=== PATIENT | male | born 1955 | race African-American/Black ===

== ENCOUNTER 2019-02-27 16:21 | Emergency (ER) | payer MEDICARE ==
[~2019-02-27] VITALS: Ht 180.3 cm; Wt 83.9 kg
[2019-02-27 16:28] VITALS: BP 161/87
[2019-02-27] MEDS ORDERED: CYCL10TA2 PO (16:39)
--- NOTE | 2019-02-27 16:39 | PHYS DOC ---
Past Medical History Past Medical History: High Cholesterol, Hypertension Additional Past Surgical Histo: Knee surgery Alcohol Use: None Drug Use: None Adult General Chief Complaint Chief Complaint: BACK PAIN - NO INJURY HPI HPI Patient is a 64 year old male who presents with right lower back pain and hip pain that shoots down his right leg. Denies any trauma. The pain comes intermittently since last Thursday. Rates his pain when he tries to sit up or walk as 10 out of 10 and shooting. Has not tried medication at home. Review of Systems Review of Systems Constitutional: Denies fever or chills [] Eyes: Denies change in visual acuity, redness, or eye pain [] HENT: Denies nasal congestion or sore throat [] Respiratory: Denies cough or shortness of breath [] Cardiovascular: No additional information not addressed in HPI [] GI: Denies abdominal pain, nausea, vomiting, bloody stools or diarrhea [] : Denies dysuria or hematuria [] Musculoskeletal: Reports back pain and pain shooting down right leg but denies joint pain [] Integument: Denies rash or skin lesions [] Neurologic: Denies headache, focal weakness or sensory changes [] Endocrine: Denies polyuria or polydipsia [] Complete systems were reviewed and found to be within normal limits, except as documented in this note. Current Medications Current Medications Current Medications Medications (Trade) Dose Ordered Sig/Igor Start Time Stop Time Status Last Admin Dose Admin Cyclobenzaprine HCl (Flexeril) 10 mg 1X ONCE 02/27/19 16:45 02/27/19 16:46 DC 02/27/19 16:38 10 MG Ketorolac Tromethamine (Toradol 30mg Vial) 30 mg 1X ONCE 02/27/19 16:45 02/27/19 16:46 DC 02/27/19 16:38 30 MG Allergies Allergies Allergies Coded Allergies Type Severity Reaction Last Updated Verified No Known Drug Allergies 02/27/19 No Physical Exam Physical Exam Constitutional: Well developed, well nourished, no acute distress, non-toxic appearance. [] HENT: Normocephalic, atraumatic, bilateral external ears normal, oropharynx moist, no oral exudates, nose normal. [] Eyes: PERRLA, EOMI, conjunctiva normal, no discharge. [] Neck: Normal range of motion, no tenderness, supple, no stridor. [] Cardiovascular:Heart rate regular rhythm, no murmur [] Lungs & Thorax: Bilateral breath sounds clear to auscultation [] Abdomen: Bowel sounds normal, soft, no tenderness, no masses, no pulsatile masses. [] Skin: Warm, dry, no erythema, no rash. [] Back: Tenderness to R lower back, no CVA tenderness. [] Extremities: No tenderness, no cyanosis, no clubbing, ROM intact, no edema. [] Neurologic: Alert and oriented X 3, normal motor function, normal sensory function, no focal deficits noted. [] Psychologic: Affect normal, judgement normal, mood normal. [] Current Patient Data Vital Signs Vital Signs Date Time Temp Pulse Resp B/P (MAP) Pulse Ox O2 Delivery O2 Flow Rate FiO2 02/27/19 16:28 97.7 66 18 161/87 (111) 98 Room Air 97.7 Lab Values Laboratory Tests Test 02/27/19 16:37 Urine Collection Type Unknown Urine Color Straw Urine Clarity Clear Urine pH 6.5 Urine Specific Alicia 1.025 Urine Protein Negative mg/dL (NEG-TRACE) Urine Glucose (UA) Negative mg/dL (NEG) Urine Ketones (Stick) Negative mg/dL (NEG) Urine Blood Negative (NEG) Urine Nitrite Negative (NEG) Urine Bilirubin Negative (NEG) Urine Urobilinogen Dipstick 1.0 mg/dL (0.2 mg/dL) Urine Leukocyte Esterase Small (NEG) Urine RBC 0 /HPF (0-2) Urine WBC Occ /HPF (0-4) Urine Bacteria 0 /HPF (0-FEW) EKG EKG [] Radiology/Procedures Radiology/Procedures [] Course & Med Decision Making Course & Med Decision Making Pertinent Labs and Imaging studies reviewed. (See chart for details) Will get UA, and give medication to help pain. Appears to be sciatica. Urine is unremarkable, does not show blood. On reeval the medications had helped his pain. Will prescribe to go home on. Liz Disclaimer Liz Disclaimer This electronic medical record was generated, in whole or in part, using a voice recognition dictation system. Departure Departure Impression: Primary Impression: Sciatica Disposition: HOME, SELF-CARE Condition: STABLE Patient Instructions: Sciatica, Sciatica with Rehab[facility] Additional Instructions: Please follow up with your primary care doctor as needed. Can take Ibuprofen at home per label instructions. Can also take Flexeril as prescribed. Do not operate machinery on this medication as can cause drowsiness. Scripts Cyclobenzaprine Hcl (CYCLOBENZAPRINE HCL) 10 Mg Tablet 1 TAB PO TID PRN for MUSCLE SPASMS, #30 TAB Prov: JENNIFER CARTY APRN 02/27/19 Problem Qualifiers Primary Impression: Sciatica Laterality: right Qualified Codes: M54.31 - Sciatica, right side JENNIFER CARTY APRN Feb 27, 2019 16:39
[2019-02-27] MEDS ORDERED: CYCLOBENZAPRINE 10 MG TABLET. PO ONE (16:45)
[2019-02-27] MEDS ORDERED: KETOROLAC 30 MG/ML VIAL. IM ONE (16:45)
[2019-02-27 17:10] LABS: BILIRUBIN,URINE NEGATIVE (NEG); CLARITY,URINE CLEAR; COLOR,URINE STRAW; PH,URINE 6.5
[2019-02-27 17:11] LABS: BACTERIA,URINE 0 /HPF (0-FEW); NITRITE,URINE NEGATIVE (NEG); PROTEIN,URINE NEGATIVE (NEG-TRACE); RBC,URINE 0 /HPF (0-2); WBC,URINE OCC /HPF (0-4)
== END 2019-02-27 17:33 | disposition home or self-care (01) ==
LOC: ER 16:21
DX: M54.41 Lumbago with sciatica, right side (principal); M25.551 Pain in right hip; E78.00 Pure hypercholesterolemia, unspecified; I10 Essential (primary) hypertension
CPT/HCPCS: 81001; 96372; 99283; J1885